=== PATIENT | male | born 1985 | race Caucasian/White ===

== ENCOUNTER 2018-08-30 20:59 | Emergency (ER) | payer MEDICAID, MEDICARE ==
[~2018-08-30] VITALS: Ht 188 cm; Wt 82.4 kg
[~2018-08-30 20:59] MED LIST: ASPI325T17 PO; CEPH-368 PO; HYDR-3151 PO; LAMO100T5 PO; POLY17PO5 PO; QUET100T4 PO; SIMV40TA PO
[2018-08-30 21:11] VITALS: BP 123/75
== END 2018-08-30 23:51 | disposition home or self-care (01) ==
LOC: ED 23:49
DX: J06.9 Acute upper respiratory infection, unspecified (principal); B34.9 Viral infection, unspecified
CPT/HCPCS: 71046; 99283